=== PATIENT | female | born 1995 | race Caucasian/White ===

== ENCOUNTER 2025-03-19 13:48 | Observation (INO) | payer OTHER ==
[2025-03-19 14:01] VITALS: BMI 29.6
[2025-03-19] MEDS ORDERED: hydrALAZINE 20 MG/ML VIAL SLOW IVP PRN (14:34)
[2025-03-19] MEDS ORDERED: Carboprost 250 MCG/ML AMP IM PRN (19:10)
[2025-03-19] MEDS ORDERED: Tranexamic Acid 1,000 MG/10 ML VIAL IVP PRN (19:10)
[2025-03-19] MEDS ORDERED: Acetaminophen 500 MG TAB PO PRN (19:10)
[2025-03-19] MEDS ORDERED: Diphenoxylate HCl/Atropine Tablet PO PRN ×2 (19:10)
[2025-03-19] MEDS ORDERED: Methylergonovine 0.2 MG/ML VIAL IM PRN (19:10)
[2025-03-19] MEDS ORDERED: Ondansetron PF 4 MG/2 ML Vial IVP PRN (19:10)
[2025-03-19] MEDS ORDERED: Oxytocin 30 units/NS 500 ML 500 ML IV SCH (19:15)
[2025-03-19 21:48] LABS: Hematocrit 30.8 % (34.9-44.5); Hemoglobin 10.7 g/dL (12.0-15.5); Mean Corpuscular Hemoglobin 30.6 pg (27.0-33.0); Mean Corpuscular Volume 88.0 fL (81.6-98.3); Platelet Count 172 10x3/uL (150-450); Red Blood Cell (RBC) Count 3.50 10x6/uL (3.90-5.03); White Blood Cell (WBC) Count 12.38 10x3/uL (3.5-10.5)
[2025-03-19 22:14] LABS: Hep B Surf Ag - L&D Non-Reactive S/CO (NonReactive)
[2025-03-19 22:16] LABS: Syphilis Antibody Index 0.08 S/CO (<1.00 Non-Reactive)
== END 2025-03-20 09:33 | disposition home or self-care (01) ==
LOC: CSHLD/OP 13:48 → CSHLD 19:06
PROVIDERS: ADMIT Family Medicine; ATTEND Family Medicine
DX: O47.03 False labor before 37 completed weeks of gestation, third trimester (principal); O99.013 Anemia complicating pregnancy, third trimester; D50.9 Iron deficiency anemia, unspecified; O99.343 Other mental disorders complicating pregnancy, third trimester; F41.9 Anxiety disorder, unspecified; O99.353 Diseases of the nervous system complicating pregnancy, third trimester; G43.909 Migraine, unspecified, not intractable, without status migrainosus; O23.593 Infection of other part of genital tract in pregnancy, third trimester; Z3A.36 36 weeks gestation of pregnancy; Z67.10 Type A blood, Rh positive; Z90.89 Acquired absence of other organs; Z79.899 Other long term (current) drug therapy; O75.89 Other specified complications of labor and delivery; D72.829 Elevated white blood cell count, unspecified
CPT/HCPCS: 36415; 80053; 85025; 85610; 85730; 86780; 86850; 86900; 86901; 87340; 99284; 99285; G0378